=== PATIENT | female | born 1985 | race Caucasian/White ===

== ENCOUNTER 2022-12-02 07:34 | Outpatient (REF) | payer OTHER, SELFPAY | END 2022-12-02 07:35 | disposition home or self-care (01) | LOC: HO.HOSX 07:34 | PROVIDERS: Visit Provider Orthopaedic Surgery | DX: Z13.89 Encounter for screening for other disorder (principal) ==

== ENCOUNTER 2022-12-02 08:43 | Outpatient (AMB) | payer OTHER, SELFPAY ==
--- NOTE | 2022-12-02 08:48 | A.OFFVIS_ITS ---
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 Patient reports that on Tuesday (11/28/22) she was water skiing when she fell and twisted her ankle laterally. Immediate onset of pain. She was seen at a Walk-in center where xrays were taken and she was placed in a walking boot due to medial malleolus fx. She is having some mild pain, but is taking motrin which is helping. Denies numbness and tingling. 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 She says she was water skiing on 11/28/22 when she fell and twisted her ankle while skiing, feeling immediate pain. She was seen at a walk-in center and told she had a medial malleolus fracture, she was placed in a walking boot and given crutches to use. She says her pain is mild today and she has been taking NSAIDs. 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 Review of Systems Const All systems reviewed & are unremarkable except as noted in HPI and below Physical Exam Vital Signs: BMI result Body Mass Index 26.6 Const General: no acute distress, alert and awake Orientation/consciousness: patient oriented x3 HEENT Head: Yes normocephalic and Yes atraumatic Eyes EOM: EOMs intact bilaterally Resp Effort & Inspection: normal respiratory effort and able to speak in complete sentences Cardio Jugular venous distension: no JVD Skin General skin exam: turgor normal Rashes: no rashes Neuro General: patient oriented x3 Extrem Other: Right Ankle: Mild soft tissue swelling about right ankle Ecchymosis over medial aspect Psych Appearance: grossly normal Affect: normal affect Attitude: cooperative Results Reviewed Results Reviewed: I personally reviewed relevant radiographs. Medial malleolar fracture, minimally displaced. Assessment & Plan Assessment & Plan (1) Fracture of medial malleolus, right, closed: Code(s): S82.51XA - Displaced fracture of medial malleolus of right tibia, initial encounter for closed fracture Qualifiers: Encounter type: initial encounter Fracture alignment: nondisplaced Qualified Code(s): S82.54XA - Nondisplaced fracture of medial malleolus of right tibia, initial encounter for closed fracture Plan: This is a 37 year old woman with a right medial malleolus fracture, from a water-skiing injury, DOI: 11/28/22. She is seen today in a walking boot and using crutches for ambulation. She currently has some pain which she has been managing with NSAIDs. I discussed her diagnosis and treatment options. I recommend a right ankle ORIF. I discussed the risks, benefits, and alternatives including, but not limited to, the risk of pain, infection, stiffness, need for further surgery as well as potential medical complications. I discussed the recovery timeline and process as well as the importance of PT. Lizet is a good candidate for this surgery, and she wishes to proceed with this decision. She will schedule this procedure for sometime tomorrow, 12/03/22. Plan Scribed for Hever Quintana MD by Santosh Condon, medical typist, on 12/02/22 at 9:10 AM, EST. Orders: Orders XR ankle RT min 3V 12/02/22 M25.579 - Pain in unspecified ankle and joints of unspecified foot Coding Level of Care Code New Pt Level 4 (75779) Diagnoses Closed nondisplaced fracture of medial malleolus of right tibia, initial encounter S82.54XA Encounter type: initial encounter Fracture alignment: nondisplaced
[2022-12-02 08:50] VITALS: BMI 26.6
== END 2022-12-02 09:33 | disposition home or self-care (01) ==
PROVIDERS: PCP Internal Medicine; Visit Provider Orthopaedic Surgery
DX: S82.51XA Displaced fracture of medial malleolus of right tibia, initial encounter for closed fracture (principal)
CPT/HCPCS: 99204

== ENCOUNTER 2022-12-03 10:34 | Day surgery (SDC) | payer OTHER, SELFPAY ==
[2022-12-03] VITALS (10 sets, daily range): BP systolic 118–135; BP diastolic 65–78; PULSE 62–91; RESP 16–20; TEMP 36.6–37.1; O2SAT 98–99; BMI 26.6
--- NOTE | ~2022-12-03 | FL_ITS ---
EXAMINATION: XR FLUOROSCOPY WITH IMAGES CLINICAL INFORMATION: Right ankle fracture COMPARISON: 11/28/2022 TECHNIQUE: Fluoroscopy Supervised By: Dr. Hever Quintana. Fluoroscopy Time: 0.2 minutes. Cumulative Dose: 0.866 mGy. DAP: 0.0127 Gycm2. Images: 3. FINDINGS: There are 2 screws transfixing the medial malleolus fracture. Alignment is near-anatomic. Alignment across the ankle mortise is appropriate. Mild soft tissue swelling. FL/FL guidance in OR IMPRESSION: Internal fixation of the medial malleolus fracture with appropriate alignment.
--- NOTE | 2022-12-03 10:47 | P.CONAN_ITS ---
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 Allergies Allergy/AdvReac Type Severity Reaction Status Date / Time No Known Allergies Allergy Verified 12/02/22 08:52 Home Medications Medication Instructions Recorded Confirmed Last Taken Type No Known Home Meds 12/02/22 12/02/22 Unknown History Exam Exam Date and Time: December 03, 2022 1047 Airway Mallampati Class: I TM Dist: >3cm Neck ROM: Full Heart: rrr Lungs: cta Assessment and Plan Assessment Anesthesia Assessment: Anesthesia Plan Discussed and Chart Reviewed Final Anesthetic Review Family History of Problems with Anesthesia: No History of Problems with Anesthesia: No NPO: Yes ASA Class: I Final Preanesthetic Review: No Changes in Pt Med Stat, Meds/Allgs Chart Reviewed and Consent Obtained/Reviewed Patient Risk: Intermediate Procedure Risk: Intermediate Anesthetic Plan Anesthetic Plan: GA Disposition: Standard PACU
[2022-12-03 11:24] LABS: UPreg QC Valid YES; Urine Pregnancy NEGATIVE (NEGATIVE)
--- NOTE | 2022-12-03 14:00 | P.BOP_ITS ---
Brief Operative Note Date of Service: 12/03/22 Pre-op diagnosis: Right medial malleolus fracture Post-op diagnosis: same Procedure: ORIF right medial malleolus Implants: [place] 4.0 partially threaded cannulated screws 35 mm x 2 Surgeon: Hever Quintana MD Anesthesia: GETA and regional Was an Concrete Block Plant Supervisor used for this Procedure?: No Estimated blood loss (mL): 5 Tourniquet time (min): 30 IV fluids (mL): 800 Pathology: none sent Condition: stable Disposition: PACU
[2022-12-03] MEDS: oxyCODONE HCl Immed Release 5 MG TABLET PO (14:19)
[2022-12-03] MEDS: fentaNYL citrate/PF 100 MCG/2 ML VIAL 50 MCG IVPUSH (14:19)
--- NOTE | 2022-12-17 10:15 | P.OP_ITS ---
Operative Note Operative Note Date of Service: 12/03/22 Narrative: Date of Service: 12/03/22 Pre-op diagnosis: Right medial malleolus fracture Post-op diagnosis: same Procedure: ORIF right medial malleolus Implants: [place] 4.0 partially threaded cannulated screws 35 mm x 2 Surgeon: Hever Quintana MD Anesthesia: GETA and regional Was an Beauty Culture Teacher used for this Procedure?: No Estimated blood loss (mL): 5 Tourniquet time (min): 30 IV fluids (mL): 800 Pathology: none sent Condition: stable Disposition: PACU Procedure in detail: Patient was brought to the operating room and placed supine on the operative table. All bony prominences were well padded and a time-out was called to identify proper site proper procedure proper surgeon. IV antibiotics per weight were administered. I began by exsanguinating limb is slightly tourniquet to 300 mm Hg. I then made a standard medial incision over the medial malleolus. Full- thickness skin flaps were developed. The fracture was identified, cleaned and then reduced with a sharp tenaculum. 2 threaded K-wires were then placed from distal to proximal and perpendicular to the fracture. Biplanar fluoroscopy was used to confirm positioning and then they were overdrilled and 2 40 mm 4.0 partially-threaded cannulated cancellous screws were placed across the fracture. I was satisfied with the position and the fracture reduction based on biplanar fluoroscopy and direct visualization. All instrumentation was removed and copious irrigation was performed. Absorbable suture and valarie were used for closure and the patient was placed into sterile dressings and a well-padded posterior splint. Tourniquet was let down and the patient was extubated brought to recovery room in stable condition there were no known complications.
== END 2022-12-03 15:33 | disposition home or self-care (01) ==
PROVIDERS: Anesthesiology; PCP Internal Medicine; Visit Provider Orthopaedic Surgery
PROC: (CPT 27766; principal; 2022-12-03 12:00)
DX: S82.51XA Displaced fracture of medial malleolus of right tibia, initial encounter for closed fracture (principal); M25.571 Pain in right ankle and joints of right foot; W19.XXXA Unspecified fall, initial encounter; Y93.17 Activity, water skiing and wake boarding; Y92.9 Unspecified place or not applicable; Y99.8 Other external cause status; Z98.890 Other specified postprocedural states
CPT/HCPCS: 27766; 81025; C1713; J0131; J0690; J1100; J2250; J2405; J2795; J3010

== ENCOUNTER → 2022-12-03 10:34 | Outpatient (BNV) | payer OTHER, SELFPAY | PROVIDERS: PCP Internal Medicine; Visit Provider Orthopaedic Surgery | DX: S82.51XA Displaced fracture of medial malleolus of right tibia, initial encounter for closed fracture (principal) | CPT/HCPCS: 27766 ==

== ENCOUNTER 2022-12-13 10:56 | Outpatient (REF) | payer OTHER, SELFPAY ==
--- NOTE | ~2022-12-13 | XR_ITS ---
EXAMINATION: XR ANKLE, RIGHT CLINICAL INFORMATION: Pain in right ankle and joints of foot COMPARISON: 11/28/2022 TECHNIQUE: AP, lateral, and mortise views of the right ankle. FINDINGS: Status post fixation of medial malleolar with 2 screws. Hardware appears intact. Soft tissue swelling and ankle joint effusion. Alignment is maintained. XR/XR ankle RT min 3V IMPRESSION: Status post fixation of previously demonstrated medial malleolar minimally displaced fracture. Hardware appears intact.
== END 2022-12-13 10:57 | disposition home or self-care (01) ==
LOC: HO.HOSX 10:56
PROVIDERS: Visit Provider Physician Assistant
DX: S82.54XA Nondisplaced fracture of medial malleolus of right tibia, initial encounter for closed fracture (principal); S82.51XA Displaced fracture of medial malleolus of right tibia, initial encounter for closed fracture; X58.XXXA Exposure to other specified factors, initial encounter; Y93.9 Activity, unspecified; Y92.9 Unspecified place or not applicable; Y99.9 Unspecified external cause status; Z87.81 Personal history of (healed) traumatic fracture; Z98.890 Other specified postprocedural states
CPT/HCPCS: 73610

== ENCOUNTER 2022-12-13 14:00 | Outpatient (AMB) | payer OTHER, SELFPAY ==
--- NOTE | 2022-12-13 14:03 | MHC.OFFVIS ---
Intake Intake Visit Reasons: PO RT Ankle ORIF 12/03/22NE Intake Note: Lizet 37 yr old female presents today for her P/O visit for her right ankle ORIF from 12/03/[address] Quintana. Dressing removed and xrays updated in office. States she has elevated her foot since day of surgery. States she feels like her ankle is swollen and pain is tolerable. Allergies No Known Allergies Allergy (Verified 12/13/22 14:04) HPI PO RT Ankle ORIF 12/03/22NE HPI Details 37-year-old female who returns to the office today for post-op right ankle ORIF, 12/03/[address] Quintana. She continues to have pain which is tolerable and swelling in his ankle. She reports she has elevated her foot since her DOS. She is doing well overall and has no concerns today. 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 Minimal swelling throughout the foot and ankle. No ecchymosis or erythema. NVI. Assessment & Plan Assessment & Plan (1) Fracture of medial malleolus, right, closed: Code(s): S82.51XA - Displaced fracture of medial malleolus of right tibia, initial encounter for closed fracture Qualifiers: Encounter type: initial encounter Fracture alignment: nondisplaced Qualified Code(s): S82.54XA - Nondisplaced fracture of medial malleolus of right tibia, initial encounter for closed fracture (2) Status post ORIF of fracture of ankle: Code(s): Z98.890 - Other specified postprocedural states; Z87.81 - Personal history of (healed) traumatic fracture Plan She was placed in a short leg cast. She will remain non weight bearing for the next 4 weeks. She will return to work on 12/20/22 from home, working 4 hours a day for the next 4 weeks, at that point she will see us back in the office with cast off and new x-rays, sooner if needed. Orders: Orders XR ankle RT min 3V Today M25.571 - Pain in right ankle and joints of right foot Patient Instructions: Scribed for Harry Lazo PA-C, by David Salinas medical i d sales, on 12/13/2022 at 2:00 PM EST. I, Harry Lazo PA-C, have personally reviewed and agree with the information entered by the scribe. Coding Level of Care Code Global (57775) Diagnoses Closed nondisplaced fracture of medial malleolus of right tibia, initial encounter S82.54XA Encounter type: initial encounter Fracture alignment: nondisplaced Status post ORIF of fracture of ankle Z98.890; Z87.81
== END 2022-12-13 15:01 | disposition home or self-care (01) ==
PROVIDERS: PCP Internal Medicine; Visit Provider Physician Assistant
DX: S82.54XA Nondisplaced fracture of medial malleolus of right tibia, initial encounter for closed fracture (principal); Z98.890 Other specified postprocedural states; Z87.81 Personal history of (healed) traumatic fracture
CPT/HCPCS: 99024

== ENCOUNTER 2023-01-10 12:37 | Outpatient (REF) | payer OTHER, SELFPAY ==
--- NOTE | ~2023-01-10 | XR_ITS ---
EXAMINATION: XR ANKLE, RIGHT CLINICAL INFORMATION: Follow-up fracture COMPARISON: 12/13/2022, 11/28/2022. TECHNIQUE: AP, lateral, and mortise views of the right ankle. FINDINGS: 2 compression screws visualized in the medial malleolus compressing aren't displaced fracture. The fracture line is still visualized through the base of medial malleolus. Ankle mortise is preserved. There is soft tissue swelling seen medially. XR/XR ankle RT min 3V IMPRESSION: Interval healing of noncomminuted fractures medial malleolus with hardware in place
== END 2023-01-10 12:38 | disposition home or self-care (01) ==
LOC: HO.HOSX 12:37
PROVIDERS: Visit Provider Physician Assistant
DX: S82.54XD Nondisplaced fracture of medial malleolus of right tibia, subsequent encounter for closed fracture with routine healing (principal); Z98.890 Other specified postprocedural states
CPT/HCPCS: 29515; 73610

== ENCOUNTER 2023-01-10 15:09 | Outpatient (AMB) | payer OTHER, SELFPAY ==
--- NOTE | 2023-01-10 15:28 | A.OFFVIS_ITS ---
Intake Vital Signs 01/10/23 15:30 Height 5 ft 6 in Weight 160 lb BMI 25.8 Intake Visit Reasons: PO-RT Ankle ORIF 12/03/22NE-four week follow up Intake Note: Lizet a 37 year old female presents today for a post operative right ankle ORIF, DOS 12/03/22 NE. Cast off and xrays updated. Patient reports she is doing really well, denies pain. States occasional tightness. Allergies No Known Allergies Allergy (Verified 01/10/23 15:34) HPI PO-RT Ankle ORIF 12/03/22NE-four week follow up HPI Details 37-year-old female who returns to the [facility] today for post-op right ankle ORIF, 12/03/[address] Quintana. She states she has no pain but she does c/o occasional tightness in her ankle. She is doing well otherwise and has no concerns today. 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 No ecchymosis or erythema. NVI. Office Procedures Casting/Splints [id number] Leg splint application Procedure code (CPT) selection complete Results Reviewed Results Reviewed: Xrays were obtained in the office today and personally reviewed by me of the right ankle show intact orthopedic hardware with stable fracture alignment and interval healing. Assessment & Plan Assessment & Plan (1) Fracture of medial malleolus, right, closed: Code(s): S82.51XA - Displaced fracture of medial malleolus of right tibia, initial encounter for closed fracture Qualifiers: Encounter type: initial encounter Fracture alignment: nondisplaced Qualified Code(s): S82.54XA - Nondisplaced fracture of medial malleolus of right tibia, initial encounter for closed fracture (2) Status post ORIF of fracture of ankle: Code(s): Z98.890 - Other specified postprocedural states; Z87.81 - Personal history of (healed) traumatic fracture Plan She was transitioned to a tall boot weight bearing as tolerated. She will begin a course of physical therapy to work on ROM, gentle strengthening and proprioceptive training. I would like to see her back in 6 weeks with new x- rays, sooner if needed. Orders: Orders XR ankle RT min 3V Today M25.571 - Pain in right ankle and joints of right foot PT Evaluation and Treatment Today S82.51XA - Displaced fracture of medial malleolus of right tibia, initial encounter for closed fracture, Z87.81 - Personal history of (healed) traumatic fracture, Z98.890 - Other specified postprocedural states Patient Instructions: Scribed for Harry Lazo PA-C, by David Salinas medical imaging technologist, on 01/10/2023 at 3:00 PM EST. IHarry PA-C, have personally reviewed and agree with the information entered by the scribe. Coding Level of Care Code Global (59503) Diagnoses Closed nondisplaced fracture of medial malleolus of right tibia, initial encounter S82.54XA Encounter type: initial encounter Fracture alignment: nondisplaced Status post ORIF of fracture of ankle Z98.890; Z87.81 CPT Codes Splint - CPT: 81519-[id number] Leg splint application ([id number])
[2023-01-10 15:30] VITALS: BMI 25.8
== END 2023-01-10 16:17 | disposition home or self-care (01) ==
PROVIDERS: PCP Internal Medicine; Visit Provider Physician Assistant
DX: S82.54XA Nondisplaced fracture of medial malleolus of right tibia, initial encounter for closed fracture (principal); Z87.81 Personal history of (healed) traumatic fracture
CPT/HCPCS: 29515; 99024

== ENCOUNTER 2023-02-07 14:09 | Outpatient (AMB) | payer OTHER, SELFPAY ==
--- NOTE | 2023-02-07 14:33 | A.OFFVIS_ITS ---
Intake Vital Signs 02/07/23 14:40 Height 5 ft 6 in Weight 160 lb BMI 25.8 Intake Visit Reasons: OV- RT Ankle ORIF 12/03/22NE Intake Note: Lizet a 38 year old male presents today for a follow up of right ankle ORIF, DOS 12/03/22. Patient reports she is doing really well, she will have some soreness. She continues to wear boot as instructed. Allergies No Known Allergies Allergy (Verified 02/07/23 14:39) HPI OV- RT Ankle ORIF 12/03/22NE HPI Details 38-year-old female who returns to the [facility] today for a follow-up of right ankle ORIF, 12/03/[address] Quintana. She states she has mild soreness in her ankle but is doing well otherwise. She continues to wear the boot as instructed. He has no other concerns today. 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 No ecchymosis or erythema. NVI. Results Reviewed Results Reviewed: Xrays were obtained in the office today and personally reviewed by me of the right ankle show intact orthopedic hardware with stable fracture alignment and interval healing. Assessment & Plan Assessment & Plan (1) Status post ORIF of fracture of ankle: Code(s): Z98.890 - Other specified postprocedural states; Z87.81 - Personal history of (healed) traumatic fracture Plan She will continue working with physical therapy progressing to strengthening and proprioceptive training. She will ween out of the boot to a lace-up ankle brace and will increase activity as tolerated. I would like to see him back in 6 weeks. If she is doing well and has no concerns, she can cancel the appointment, otherwise she will follow-up as needed. Orders: Orders XR ankle RT min 3V Today M25.571 - Pain in right ankle and joints of right foot PT Evaluation and Treatment Today Z87.81 - Personal history of (healed) traumatic fracture, Z98.890 - Other specified postprocedural states Patient Instructions: Scribed for Harry Lazo PA-C, by David Salinas director medical economics, on 02/07/2023 at 2:45 PM EST. IHarry PA-C, have personally reviewed and agree with the information entered by the scribe. Coding Level of Care Code Global (63245) Diagnoses Status post ORIF of fracture of ankle Z98.890; Z87.81
[2023-02-07 14:40] VITALS: BMI 25.8
== END 2023-02-07 15:15 | disposition home or self-care (01) ==
PROVIDERS: PCP Internal Medicine; Visit Provider Physician Assistant
DX: Z98.890 Other specified postprocedural states (principal); Z87.81 Personal history of (healed) traumatic fracture
CPT/HCPCS: 99024

== ENCOUNTER 2023-02-07 14:09 | Outpatient (REF) | payer OTHER, SELFPAY ==
--- NOTE | ~2023-02-07 | XR_ITS ---
EXAMINATION: XR ANKLE, RIGHT CLINICAL INFORMATION: Pain in right ankle COMPARISON: 01/10/2023 TECHNIQUE: AP, lateral, and mortise views of the right ankle. FINDINGS: There is no interval change in position of 2 compression screws in the medial malleolus of right tibia and placed for fracture. The fracture line is not seen. XR/XR ankle RT min 3V IMPRESSION: No interval change in appearance of healing fracture of medial malleolus
== END 2023-02-07 14:10 | disposition home or self-care (01) ==
LOC: HO.HOSX 14:09
PROVIDERS: Visit Provider Physician Assistant
DX: M25.571 Pain in right ankle and joints of right foot (principal); Z47.89 Encounter for other orthopedic aftercare; Z87.81 Personal history of (healed) traumatic fracture; Z98.890 Other specified postprocedural states
CPT/HCPCS: 73610